=== PATIENT | female | born 1960 | race Caucasian/White ===

== ENCOUNTER 2018-04-15 16:19 | Inpatient (IN) | payer BC ==
[~2018-04-15] VITALS: Ht 177.8 cm; Wt 80.7 kg
--- NOTE | ~2018-04-15 | MORECARE ---
CASE MANAGEMENT DISCHARGE SUMMARY PATIENT: NOHEMY MURPHY UNIT: [id number] ADM DATE: 04/15/18 AGE: 57 : 64 SEX: F ROOM/BED: D.1213 AUTHOR: ANN LEMA PHYSICIAN: REFERRING PHYSICIAN: LIBORIO MARTE MD DATE OF SERVICE: 04/20/18 Discharge Plan Patient Name: NOHEMY MURPHY Facility: [facility]:[place] : 1960 Planned Disposition: Home Anticipated Discharge Date: Discharge Date: Expected LOS: Initial Reviewer: [email or web address] Initial Review Date: 04/20/2018 Generated: 04/20/18 4:45 pm DCPIA - Discharge Planning Initial Assessment Updated by [email or web address]: Britta Rivera on 04/20/18 3:41 pm * Is the patient Alert and Oriented? Yes * How many steps to enter\exit or inside your home? * PCP DR VENEGAS * Pharmacy [facility] Patient Name: NOHEMY MURPHY Page [phone] at 1545 All edits/amendments must be made on the electronic document DICTATION DATE: 04/20/181543 GROCERY MANAGER: TRISH 04/20/181543 RPT#: [id number] DC DATE: STATUS: ADM IN [facility] [address] [place] [address] END OF REPORT
--- NOTE | ~2018-04-15 | CN ---
PATIENT NAME:NOHEMY KNOTT MEDICAL RECORD: [id number] : 64 LOCATION:[facility] D.1213 ADMIT DATE: 04/15/18 ACCOUNT: [id number] CONSULTING PHYSICIAN: INDIRA SAENZ MD REFERRING PHYSICIAN: LIBORIO MARTE MD DATE OF CONSULTATION: 04/16/2018 CONSULT REQUESTING PHYSICIAN: Fallon Xie MD REASON FOR CONSULTATION: Acute exacerbation of COPD, dyspnea. HISTORY OF PRESENT ILLNESS: Ms. Knott is a 57-year-old female who has history of asthma-COPD overlap syndrome. According to the patient, she is sick for the last 2 weeks. According to the patient, 2 weeks ago, she was told that she had walking pneumonia. She was treated with intramuscular steroid injection as well as intramuscular Rocephin injection, but the patient was not getting any better. She was wheezing. She was coughing. The cough was productive with white-yellow color sputum production and that is now improving. She is also having shortness of breath with exertion. Denies any fever and chills. No night sweats. REVIEW OF THE SYSTEMS: As in history of present illness. PAST MEDICAL HISTORY: 1. Asthma. 2. Insomnia. 3. COPD. PAST SURGICAL HISTORY: As in history of present illness. ALLERGY: No known drug allergy. MEDICATIONS: She is on albuterol/ipratropium nebulizer, Singulair 10 mg a day, hydrocodone, Mucinex, and prednisone 5 mg a day. Her other medications are reviewed. PERSONAL AND SOCIAL HISTORY: The patient is an ex-smoker. She is nondrinker. FAMILY HISTORY: Noncontributory. PHYSICAL EXAMINATION: GENERAL: Now, the patient is lying comfortably in bed. She is not in acute distress. VITAL SIGNS: The blood pressure is 122/65, pulse is 104, respiration is 18, temperature is 98.1, and SpO2 is 95% on room air. HEENT: Conjunctivae are pink. Sclerae are not icteric. NECK: Neck is supple. No JVD. CHEST: The chest excursion is minimal on both sides. There is wheeze on forceful expiration. No crackles. HEART: Rhythm regular. Normal sound. No murmur. ABDOMEN: Abdomen is soft. Bowel sounds present. No hepatosplenomegaly. RECTAL: Deferred. EXTREMITIES: No cyanosis. No clubbing. No pedal edema. SKIN: The skin is warm. Normal turgor. CENTRAL NERVOUS SYSTEM: The patient is awake and alert. There is no obvious CONSULT REPORT [id number] NOHEMY KNOTT cranial nerve abnormality. The gait was not tested. LABORATORY DATA AND DIAGNOSTIC DATA: Chest radiograph; there is hyperinflation. No acute infiltrate. CBC; WBC 8.6, hemoglobin 13.7, hematocrit 39.5, and platelet count is 353. Chemistry; sodium 140, potassium 4.1, BUN is 18, and creatinine 0.8. IMPRESSION: 1. Acute exacerbation of COPD. 2. Acute bronchitis. 3. Acute cough. 4. Asthma-COPD overlap syndrome. 5. Dyspnea. 6. Wheezing. 7. Gastroesophageal reflux disease. RECOMMENDATIONS: 1. Continue methylprednisolone IV, Levaquin IV, and albuterol/ipratropium nebulizer every 4 hours. Start Brovana and budesonide nebulizer. Continue Singulair. Start on Mucinex DM two tablets b.i.d. 2. Increase Tessalon Perles 100 mg t.i.d. 3. Repeat the labs and chest radiograph in the morning. Dr. Xie, thank you for involving me in the care of Ms. Knott. TRANSINT:[id number] Voice Confirmation ID: [id number] DOCUMENT ID: [id number] INDIRA SAENZ MD CC: [id number] DICTATION DATE: 04/16/181426 GREEN END WORKER: 04/16/18 [address] [facility] [address] [place] [address]
--- NOTE | ~2018-04-15 | MORECARE ---
CASE MANAGEMENT DISCHARGE SUMMARY PATIENT: NOHEMY MURPHY UNIT: [id number] ADM DATE: 04/15/18 AGE: 57 : 64 SEX: F ROOM/BED: D.1213 AUTHOR: ANN LEMA PHYSICIAN: REFERRING PHYSICIAN: LIBORIO MARTE MD DATE OF SERVICE: 04/20/18 Discharge Plan Patient Name: NOHEMY MURPHY Facility: [facility]:[place] : 1960 Planned Disposition: Home Anticipated Discharge Date: Discharge Date: Expected LOS: Initial Reviewer: [email or web address] Initial Review Date: 04/20/2018 Generated: 04/20/18 5:38 pm Comments DCP- Discharge Planning Updated by [email or web address]: Britta Rivera on 04/20/18 3:[address] Patient Name: NOHEMY MURPHY Admission Status: Urgent Accout number: [id number] Admission Date: 04-15-2018 : 1960 Admission Diagnosis:UNSPECIFIED ASTHMA WITH (ACUTE) EXACERBATION Attending: LIBORIO MARTE Current LOS: 5 Anticipated DC Date: Planned Disposition: Home Primary Insurance: [email or web address] OUT OF STATE Discharge Planning Comments: CM met with patient at bedside after obtaining verbal consent. Patient states she plans on returning home after discharge with her daughter and grandson. Patient states she will have family transport her home via private vehicle. Patient denies any discharge needs at this time. CM will continue to follow and assist as needed for discharge planning / needs. Party Director: Britta Rivera DCPIA - Discharge Planning Initial Assessment Updated by [email or web address]: Britta Rivera on 04/20/18 3:41 pm * Is the patient Alert and Oriented? Yes * How many steps to enter\exit or inside your home? * PCP DR VENEGAS * Pharmacy [facility] Last DP export: 04/20/18 2:45 Patient Name: NOHEMY MURPHY Page [phone] at 6038 All edits/amendments must be made on the electronic document DICTATION DATE: 04/20/188 CLAM SHUCKER: TRISH 04/20/188 RPT#: [id number] DC DATE: STATUS: ADM IN [facility] [address] [place] [address] END OF REPORT
--- NOTE | ~2018-04-15 | MORECARE ---
CASE MANAGEMENT DISCHARGE SUMMARY PATIENT: NOHEMY MURPHY UNIT: [id number] ADM DATE: 04/15/18 AGE: 57 : 64 SEX: F ROOM/BED: D.1213 AUTHOR: ANN LEMA PHYSICIAN: REFERRING PHYSICIAN: LIBORIO MARTE MD DATE OF SERVICE: 04/22/18 Discharge Plan Patient Name: NOHEMY MURPHY Facility: [facility]:[place] : 1960 Planned Disposition: Home Anticipated Discharge Date: Discharge Date: 04/22/2018 Expected LOS: Initial Reviewer: [email or web address] Initial Review Date: 04/20/2018 Generated: 04/22/18 8:06 pm Comments DCP- Discharge Planning Updated by [email or web address]: Britta Rivera on 04/20/18 3:[address] Patient Name: NOHEMY MURPHY Admission Status: Urgent Accout number: [id number] Admission Date: 04-15-2018 : 1960 Admission Diagnosis:UNSPECIFIED ASTHMA WITH (ACUTE) EXACERBATION Attending: LIBORIO MARTE Current LOS: 5 Anticipated DC Date: Planned Disposition: Home Primary Insurance: [employer] OUT OF STATE Discharge Planning Comments: CM met with patient at bedside after obtaining verbal consent. Patient states she plans on returning home after discharge with her daughter and grandson. Patient states she will have family transport her home via private vehicle. Patient denies any discharge needs at this time. CM will continue to follow and assist as needed for discharge planning / needs. Roll On Man: Britta Rivera DCPIA - Discharge Planning Initial Assessment Updated by [email or web address]: Britta Rivera on 04/20/18 3:41 pm * Is the patient Alert and Oriented? Yes * How many steps to enter\exit or inside your home? * PCP DR VENEGAS * Pharmacy [place] Last DP export: 04/20/18 3:38 Patient Name: NOHEMY MURPHY Page [phone] at 1906 All edits/amendments must be made on the electronic document DICTATION DATE: 04/22/181905 MARKETING ASSOCIATE: TRISH 04/22/181905 RPT#: [id number] DC DATE:04/22/18 STATUS: DIS IN [facility] [address] [place] [address] END OF REPORT
[2018-04-15] MEDS ORDERED: SINGULAIR10 MG PO (17:50)
[2018-04-15] MEDS ORDERED: PREDNISONE5 MG PO (17:50)
[2018-04-15] MEDS ORDERED: MUCINEX600 MG PO (17:50)
[2018-04-15] MEDS ORDERED: SINGULAIR10 MG (17:55)
[2018-04-15] MEDS ORDERED: ALBUTEROL SULF8.5 GM INH (17:57)
[2018-04-15 18:33] VITALS: BP 122/83; BMI 25.8
[2018-04-15 18:52] LABS: BASOPHILS 0.9 % (0-2); EOSINOPHILS 4.7 % (0-7); HEMATOCRIT 39.5 % (36.0-48.0); HEMOGLOBIN 13.7 g/dL (12-16); IMMATURE GRANULOCYTES 0.1 % (0-5); LYMPHOCYTES 32.3 % (15-50); MCH 35.9 pg (26.0-34.0); MCHC 34.7 g/dL (31.0-37.0); MCV 103.4 fL (80.0-100.0); MEAN PLATELET VOLUME 9.8 fL (7.4-10.4); PLATELET COUNT 353 10x3/uL (130-400); RBC 3.82 10x6/uL (4.00-5.40); RDW 12.3 % (11.5-14.5); WBC 8.6 10x3/uL (4.8-10.8)
[2018-04-15 18:58] LABS: ALBUMIN 3.7 g/dL (3.4-5.0); ALKALINE PHOSPHATASE 121 U/L (46-116); ALT (SGPT) 37 U/L (10-68); BILIRUBIN - TOTAL 0.53 mg/dL (0.2-1.3); CALC OSMOLALITY 280 mosm/kg (275-300); CALCIUM 8.6 mg/dL (8.5-10.1); CARBON DIOXIDE 26.7 mmol/L (21.0-32.0); CHLORIDE - SERUM 105 mmol/L (98-107); CREATININE - SERUM 0.8 mg/dL (0.6-1.3); GLUCOSE 102 mg/dL (74-106); POTASSIUM - SERUM 4.1 mmol/L (3.5-5.1); PROTEIN - SERUM 6.8 g/dL (6.4-8.2); SODIUM 140 mmol/L (136-145); UREA NITROGEN 18 mg/dL (7-18); eGFR NON AFRICAN AMERICAN 79 mL/min (90-120)
[2018-04-15 20:00] VITALS: BP 128/73
[2018-04-16] VITALS (7 sets, daily range): BP systolic 96–140; BP diastolic 54–91
[2018-04-17 04:00] VITALS: BP 167/95
[2018-04-17 06:23] LABS: HEMATOCRIT 40.1 % (36.0-48.0); HEMOGLOBIN 13.9 g/dL (12-16); MCH 36.1 pg (26.0-34.0); MCHC 34.7 g/dL (31.0-37.0); MCV 104.2 fL (80.0-100.0); MEAN PLATELET VOLUME 10.2 fL (7.4-10.4); PLATELET COUNT 388 10x3/uL (130-400); RBC 3.85 10x6/uL (4.00-5.40); RDW 12.4 % (11.5-14.5)
[2018-04-17 06:29] LABS: CARBON DIOXIDE 22.9 mmol/L (21.0-32.0); CHLORIDE - SERUM 107 mmol/L (98-107); CREATININE - SERUM 0.8 mg/dL (0.6-1.3); POTASSIUM - SERUM 3.8 mmol/L (3.5-5.1); SODIUM 142 mmol/L (136-145); eGFR NON AFRICAN AMERICAN 79 mL/min (90-120)
[2018-04-17 06:30] LABS: CALC OSMOLALITY 285 mosm/kg (275-300); GLUCOSE 153 mg/dL (74-106); UREA NITROGEN 12 mg/dL (7-18)
[2018-04-17 07:49] LABS: LYMPHOCYTES 9 % (15-50); MONOCYTES 5 % (2-11); NEUTROPHILS 85 % (40-80)
[2018-04-17 07:50] LABS: ANISOCYTOSIS OCC; HYPOCHROMASIA OCC; PLATELET ESTIMATE NORMAL
[2018-04-17 08:09] VITALS: BP 97/56
[2018-04-17 15:03] VITALS: BP 118/68
[2018-04-17 17:00] VITALS: BP 122/78
[2018-04-17 19:25] VITALS: BP 150/77
[2018-04-18 00:32] VITALS: BP 123/61
[2018-04-18 04:45] VITALS: BP 109/60
[2018-04-18 06:02] LABS: BASOPHILS 0 % (0-2); EOSINOPHILS 0 % (0-7); HEMATOCRIT 38.3 % (36.0-48.0); HEMOGLOBIN 13.2 g/dL (12-16); IMMATURE GRANULOCYTES 0.4 % (0-5); LYMPHOCYTES 11.5 % (15-50); MCH 35.7 pg (26.0-34.0); MCHC 34.5 g/dL (31.0-37.0); MCV 103.5 fL (80.0-100.0); MEAN PLATELET VOLUME 9.7 fL (7.4-10.4); NEUTROPHILS 80.1 % (40-80); PLATELET COUNT 311 10x3/uL (130-400); RDW 12.7 % (11.5-14.5); WBC 15.8 10x3/uL (4.8-10.8)
[2018-04-18 06:39] LABS: CALC OSMOLALITY 286 mosm/kg (275-300); CALCIUM 8.7 mg/dL (8.5-10.1); CARBON DIOXIDE 24.1 mmol/L (21.0-32.0); CHLORIDE - SERUM 108 mmol/L (98-107); CREATININE - SERUM 0.7 mg/dL (0.6-1.3); GLUCOSE 108 mg/dL (74-106); POTASSIUM - SERUM 3.9 mmol/L (3.5-5.1); SODIUM 143 mmol/L (136-145); UREA NITROGEN 14 mg/dL (7-18); eGFR NON AFRICAN AMERICAN > 90 mL/min (90-120)
[2018-04-18 07:23] VITALS: BP 114/58
[2018-04-18 11:02] VITALS: BP 105/56
[2018-04-18 19:05] VITALS: BP 121/64
[2018-04-18 22:59] VITALS: BP 125/88
[2018-04-19 02:59] VITALS: BP 115/65
[2018-04-19 05:53] LABS: BASOPHILS 0 % (0-2); EOSINOPHILS 0 % (0-7); HEMATOCRIT 39.4 % (36.0-48.0); HEMOGLOBIN 13.4 g/dL (12-16); IMMATURE GRANULOCYTES 0.3 % (0-5); LYMPHOCYTES 7.1 % (15-50); MCH 35.6 pg (26.0-34.0); MCV 104.8 fL (80.0-100.0); MEAN PLATELET VOLUME 10.2 fL (7.4-10.4); MONOCYTES 5.6 % (2-11); PLATELET COUNT 343 10x3/uL (130-400); RBC 3.76 10x6/uL (4.00-5.40); RDW 12.7 % (11.5-14.5)
[2018-04-19 06:03] LABS: CALC OSMOLALITY 286 mosm/kg (275-300); CALCIUM 9.1 mg/dL (8.5-10.1); CHLORIDE - SERUM 106 mmol/L (98-107); CREATININE - SERUM 0.7 mg/dL (0.6-1.3); GLUCOSE 130 mg/dL (74-106); SODIUM 143 mmol/L (136-145); UREA NITROGEN 13 mg/dL (7-18); eGFR NON AFRICAN AMERICAN > 90 mL/min (90-120)
[2018-04-19 06:11] LABS: POTASSIUM - SERUM 4.7 mmol/L (3.5-5.1)
[2018-04-19 06:45] VITALS: BP 138/89
[2018-04-19 11:10] VITALS: BP 136/79
[2018-04-19 14:59] VITALS: BP 126/76
[2018-04-19 19:56] VITALS: BP 118/73
[2018-04-19 23:34] VITALS: BP 125/72
[2018-04-20 03:57] VITALS: BP 107/61
[2018-04-20 06:18] LABS: BASOPHILS 0 % (0-2); EOSINOPHILS 0.1 % (0-7); HEMATOCRIT 39.6 % (36.0-48.0); HEMOGLOBIN 13.4 g/dL (12-16); IMMATURE GRANULOCYTES 0.3 % (0-5); LYMPHOCYTES 11.4 % (15-50); MCH 35.4 pg (26.0-34.0); MCHC 33.8 g/dL (31.0-37.0); MCV 104.5 fL (80.0-100.0); MEAN PLATELET VOLUME 10.4 fL (7.4-10.4); MONOCYTES 6.2 % (2-11); PLATELET COUNT 342 10x3/uL (130-400); RBC 3.79 10x6/uL (4.00-5.40); RDW 12.6 % (11.5-14.5); WBC 11.6 10x3/uL (4.8-10.8)
[2018-04-20 06:32] LABS: CALC OSMOLALITY 283 mosm/kg (275-300); CALCIUM 8.9 mg/dL (8.5-10.1); CARBON DIOXIDE 28.2 mmol/L (21.0-32.0); CHLORIDE - SERUM 106 mmol/L (98-107); CREATININE - SERUM 0.7 mg/dL (0.6-1.3); GLUCOSE 124 mg/dL (74-106); POTASSIUM - SERUM 4.3 mmol/L (3.5-5.1); SODIUM 141 mmol/L (136-145); eGFR NON AFRICAN AMERICAN > 90 mL/min (90-120)
[2018-04-20 06:33] LABS: UREA NITROGEN 17 mg/dL (7-18)
[2018-04-20 07:32] VITALS: BP 116/54
[2018-04-20 11:18] VITALS: BP 107/59
[2018-04-20 15:27] VITALS: BP 128/79
[2018-04-21 00:28] VITALS: BP 98/59
[2018-04-21 04:18] VITALS: BP 102/64
[2018-04-21 05:01] LABS: BASOPHILS 0.1 % (0-2); EOSINOPHILS 2.6 % (0-7); HEMOGLOBIN 12.7 g/dL (12-16); IMMATURE GRANULOCYTES 0.4 % (0-5); LYMPHOCYTES 34.7 % (15-50); MCH 35.9 pg (26.0-34.0); MCHC 34.3 g/dL (31.0-37.0); MCV 104.5 fL (80.0-100.0); MEAN PLATELET VOLUME 9.9 fL (7.4-10.4); MONOCYTES 10.6 % (2-11); NEUTROPHILS 51.6 % (40-80); PLATELET COUNT 324 10x3/uL (130-400); RBC 3.54 10x6/uL (4.00-5.40); RDW 12.7 % (11.5-14.5); WBC 10.9 10x3/uL (4.8-10.8)
[2018-04-21 05:19] LABS: ANION GAP 11.6 mmol/L (8-16); CALCIUM 8.7 mg/dL (8.5-10.1); CARBON DIOXIDE 29.9 mmol/L (21.0-32.0); CREATININE - SERUM 0.9 mg/dL (0.6-1.3); POTASSIUM - SERUM 3.5 mmol/L (3.5-5.1)
[2018-04-21 07:32] VITALS: BP 118/71
[2018-04-21 09:30] VITALS: Ht 177.8 cm; Wt 80.7 kg
[2018-04-21 12:58] VITALS: BP 119/80
[2018-04-21 16:47] VITALS: BP 104/72
[2018-04-21 19:38] VITALS: BP 120/69
[2018-04-22 04:58] VITALS: BP 124/64
[2018-04-22 07:36] VITALS: BP 94/59
[2018-04-22 11:52] VITALS: BP 108/53
[2018-04-22 15:53] VITALS: BP 115/78
[2018-04-22] MEDS ORDERED: LEVAQUIN750 MG PO (16:39)
[2018-04-22] MEDS ORDERED: MUCINEX DM ER1 EAC1 PO (16:39)
[2018-04-22] MEDS ORDERED: BENZONATATE200 MG PO (16:40)
[2018-04-22] MEDS ORDERED: IPRAT-ALBUT 0.5-3 ML UPD (16:41)
[2018-04-22] MEDS ORDERED: ALBUTEROL SULF8.5 GM INH (16:42)
[2018-04-22] MEDS ORDERED: PREDNISONE10 MG PO (16:44)
== END 2018-04-22 17:49 | disposition home or self-care (01) | DRG 190 ==
LOC: D.SDCHOLD 16:19 → D.M3 16:19
PROVIDERS: Emergency Medicine; Family Medicine
DX: J44.1 Chronic obstructive pulmonary disease with (acute) exacerbation (principal); J18.9 Pneumonia, unspecified organism; J45.901 Unspecified asthma with (acute) exacerbation; J98.11 Atelectasis; J44.0 Chronic obstructive pulmonary disease with (acute) lower respiratory infection; J20.9 Acute bronchitis, unspecified; G47.00 Insomnia, unspecified; K21.9 Gastro-esophageal reflux disease without esophagitis; Z87.891 Personal history of nicotine dependence

== ENCOUNTER 2019-06-24 08:05 | Inpatient (IN) | payer BC ==
[~2019-06-24] VITALS: Ht 177.8 cm; Wt 72.6 kg
[~2019-06-24 08:05] MED LIST: ALBUTEROL SULF8.5 GM INH; BENZONATATE200 MG PO; IPRAT-ALBUT 0.5-3 ML UPD; LEVAQUIN750 MG PO; MUCINEX DM ER1 EAC1 PO; MUCINEX600 MG PO; OMNICEF300 MG PO; PREDNISONE10 MG PO; PREDNISONE5 MG PO; PROTONIX40 MG PO; RESTORIL15 MG PO; SINGULAIR10 MG; SINGULAIR10 MG PO; SYMBICORT 16010.2 GM INH; ZITHROMAX500 MG PO
[2019-06-24 08:41] LABS: BASOPHILS 0.6 % (0-2); EOSINOPHILS 1.7 % (0-7); IMMATURE GRANULOCYTES 0.2 % (0-5); LYMPHOCYTES 14.6 % (15-50); MCH 36.5 pg (26.0-34.0); MCHC 34.9 g/dL (31.0-37.0); MCV 104.6 fL (80.0-100.0); MEAN PLATELET VOLUME 9.4 fL (7.4-10.4); MONOCYTES 7.4 % (2-11); NEUTROPHILS 75.5 % (40-80); PLATELET COUNT 375 10x3/uL (130-400); RBC 4.11 10x6/uL (4.00-5.40); WBC 6.6 10x3/uL (4.8-10.8)
[2019-06-24 08:52] LABS: CALC OSMOLALITY 282 mosm/kg (275-300); CALCIUM 9.3 mg/dL (8.5-10.1); CARBON DIOXIDE 28.1 mmol/L (21.0-32.0); CHLORIDE - SERUM 104 mmol/L (98-107); CREATININE - SERUM 0.8 mg/dL (0.6-1.3); GLUCOSE 100 mg/dL (74-106); POTASSIUM - SERUM 3.9 mmol/L (3.5-5.1); SODIUM 141 mmol/L (136-145); UREA NITROGEN 17 mg/dL (7-18); eGFR NON AFRICAN AMERICAN 78 mL/min (90-120)
[2019-06-24 08:54] LABS: APTT 26.7 SECONDS (22.8-39.4); INR 0.91 (0.85-1.17); PROTIME 11.8 SECONDS (11.6-15.0)
[2019-06-24 08:56] LABS: ALBUMIN 4.1 g/dL (3.4-5.0)
[2019-06-24 09:20] LABS: ALKALINE PHOSPHATASE 141 U/L (46-116); ALT (SGPT) 76 U/L (10-68); BILIRUBIN - TOTAL 0.51 mg/dL (0.2-1.3); CKMB 1.3 U/L (0.0-3.6); CREATINE KINASE 166 UL (21-215); PRO BNP 157 pg/mL (0-125); PROTEIN - SERUM 8.1 g/dL (6.4-8.2); TROPONIN-I < 0.017 ng/mL (0.000-0.060)
[2019-06-24 09:42] VITALS: BP 136/74
[2019-06-24 11:56] VITALS: BP 146/71
--- NOTE | 2019-06-24 13:02 | MORECARE ---
CASE MANAGEMENT DISCHARGE SUMMARY PATIENT: NOHEMY MURPHY UNIT: [id number] ADM DATE: 06/24/19 AGE: 59 : 64 SEX: F ROOM/BED: D.2206 AUTHOR: PITA,DOC PHYSICIAN: REFERRING PHYSICIAN: SAUL GIBSON MD DATE OF SERVICE: 06/24/19 Discharge Plan Patient Name: NOHEMY MURPHY Facility: [facility]:[place] : 1960 Planned Disposition: Home Anticipated Discharge Date: 06/26/19 Discharge Date: Expected LOS: 2 Initial Reviewer: [email or web address] Initial Review Date: 06/24/2019 Generated: 06/24/19 2:01 pm DCP- Discharge Planning Updated by [email or web address]: Leena Landers on 06/24/19 11:[address] DC PLAN: Return home independently. ANTICIPATED DC NEEDS: Denied known dc needs. CM met with patient to complete initial dc planning assessment. CM educated patient on the CM role and verbal consent given by patient to complete assessment. CM verified patient's address, phone number, and emergency contact phone numbers. Patient lives at home and her 14 year old grandson lives with her. At discharge patient plans to return home and feels this is a safe discharge. CM discussed availability of home health, rehab services, and medical equipment. Patient denied known discharge needs at this time. Transportation provider at discharge will be her sister. CM will continue to follow and will assist as needed with dc plans/needs. Leena Landers RN, [facility] DCPIA - Discharge Planning Initial Assessment Updated by [email or web address]: Leena Landers on 06/24/19 12:59 pm * Is the patient Alert and Oriented? Yes * How many steps to enter\exit or inside your home? None * PCP Dr. Chavez * Pharmacy [facility] * Preadmission Environment Home with Family * ADLs Independent * Equipment Nebulizer * List name and contact numbers for known caregivers / representatives who currently or will assist patient after discharge: Jolie key - [phone] * Verbal permission to speak to the caregivers and representatives has been obtained from the patient. Yes * Community resources currently utilized None * Additional services required to return to the preadmission environment? No * Can the patient safely return to the preadmission environment? Yes * Has this patient been hospitalized within the prior 30 days at any hospital? Yes Patient Name: NOHEMY MURPHY Page [phone] at 1302 All edits/amendments must be made on the electronic document DICTATION DATE: 06/24/19 1301 SPRAY GUN OPERATOR: TRISH 06/24/19 1301 RPT#: [id number] DC DATE: STATUS: ADM IN [facility] [address] [place] [address] END OF REPORT
[2019-06-24 15:33] VITALS: BP 126/72; BMI 23.0
[2019-06-24 16:40] VITALS: BP 134/83
--- NOTE | 2019-06-24 19:40 | NUR ---
PT SITTING UP IN BED, AOX4. SOB AT REST. O2 2L/NC. IV RIGHT FA INFUSING NS @ 100. DENIES NEEDS. CL IN REACH, WILL CTM
[2019-06-24 20:00] VITALS: BP 129/75
[2019-06-25] VITALS: BP 110/54
[2019-06-25 04:00] VITALS: BP 115/58
[2019-06-25 06:30] LABS: BASOPHILS 0 % (0-2); EOSINOPHILS 0 % (0-7); HEMATOCRIT 38.9 % (36.0-48.0); HEMOGLOBIN 13.3 g/dL (12-16); IMMATURE GRANULOCYTES 0.1 % (0-5); LYMPHOCYTES 6.8 % (15-50); MCH 35.5 pg (26.0-34.0); MCHC 34.2 g/dL (31.0-37.0); MCV 103.7 fL (80.0-100.0); MEAN PLATELET VOLUME 11.2 fL (7.4-10.4); MONOCYTES 3.7 % (2-11); NEUTROPHILS 89.4 % (40-80); PLATELET COUNT 394 10x3/uL (130-400); RBC 3.75 10x6/uL (4.00-5.40); RDW 11.9 % (11.5-14.5)
[2019-06-25 06:50] LABS: ALBUMIN 3.2 g/dL (3.4-5.0); ALKALINE PHOSPHATASE 106 U/L (46-116); ALT (SGPT) 60 U/L (10-68); BILIRUBIN - TOTAL 0.26 mg/dL (0.2-1.3); CALCIUM 8.7 mg/dL (8.5-10.1); CARBON DIOXIDE 23.7 mmol/L (21.0-32.0); CHLORIDE - SERUM 107 mmol/L (98-107); CREATININE - SERUM 0.6 mg/dL (0.6-1.3); GLUCOSE 135 mg/dL (74-106); MAGNESIUM - SERUM 1.9 mg/dL (1.8-2.4); PHOSPHOROUS 2.9 mg/dL (2.5-4.9); POTASSIUM - SERUM 3.7 mmol/L (3.5-5.1); PROTEIN - SERUM 6.9 g/dL (6.4-8.2); SODIUM 141 mmol/L (136-145); eGFR NON AFRICAN AMERICAN > 90 mL/min (90-120)
[2019-06-25 06:51] LABS: CALC OSMOLALITY 281 mosm/kg (275-300); UREA NITROGEN 10 mg/dL (7-18)
[2019-06-25 09:03] VITALS: BP 111/55
--- NOTE | 2019-06-25 09:44 | NUR ---
PT ALERT X 4. INSPIRATORY AND EXPIRATORY WHEEZES TO ALL SABA, 2L O2 PER NC. TELEMETRY IN PLACE. IV TO RIGHT FOREARM, PATENT, DRESSING CDI. PT REPORTING NO PAIN AT THIS TIME. BED LOW, CALL LIGHT IN REACH. NO OTHER NEEDS AT THIS TIME.
[2019-06-25 12:10] VITALS: BP 103/63
[2019-06-25 16:15] VITALS: BP 127/67
--- NOTE | 2019-06-25 19:45 | NUR ---
SITTING UP IN BED RECEIVING UD AT THIS TIME. ALERT AND ORIENTED X4. RESP IRREG, LABORED. NONPROD COUGH NOTED. O2 @ 2L/NC. BBS EXP WHEEZES. DENIES PAIN. TELEMETRY SHOWS SR WITH RATE OF 86. NS @ 100 MLHR INFUSING IN RT FOREARM. AMBULATORY. GEN WEAKNESS. SR ELEVATED X2. CL IN REACH.
[2019-06-25 20:00] VITALS: BP 131/68
[2019-06-26] VITALS: BP 93/49
--- NOTE | 2019-06-26 01:47 | NUR ---
HAS RESTED WELL TONIGHT. LYING ON RT SIDE IN BED WITH EYES CLOSED. RESP NONLABORED. CL IN REACH.
[2019-06-26 04:00] VITALS: BP 120/61
--- NOTE | 2019-06-26 06:00 | NUR ---
RESTED WELL THIS SHIFT. NO DISTRESS. O2 IN USE. RESP EVEN AND NONLABORED. CL IN REACH.
[2019-06-26 06:33] LABS: BASOPHILS 0 % (0-2); EOSINOPHILS 0 % (0-7); HEMATOCRIT 35.8 % (36.0-48.0); HEMOGLOBIN 12.2 g/dL (12-16); IMMATURE GRANULOCYTES 0.1 % (0-5); LYMPHOCYTES 8.2 % (15-50); MCH 35.4 pg (26.0-34.0); MCHC 34.1 g/dL (31.0-37.0); MCV 103.8 fL (80.0-100.0); MONOCYTES 5.2 % (2-11); NEUTROPHILS 86.5 % (40-80); PLATELET COUNT 334 10x3/uL (130-400); RBC 3.45 10x6/uL (4.00-5.40); RDW 12.4 % (11.5-14.5)
[2019-06-26 06:48] LABS: WBC 9.2 10x3/uL (4.8-10.8)
[2019-06-26 07:35] LABS: ALBUMIN 2.8 g/dL (3.4-5.0); ALT (SGPT) 45 U/L (10-68); CALC OSMOLALITY 285 mosm/kg (275-300); CARBON DIOXIDE 25.4 mmol/L (21.0-32.0); CHLORIDE - SERUM 109 mmol/L (98-107); CREATININE - SERUM 0.7 mg/dL (0.6-1.3); GLUCOSE 151 mg/dL (74-106); SODIUM 143 mmol/L (136-145); eGFR NON AFRICAN AMERICAN > 90 mL/min (90-120)
[2019-06-26 07:36] LABS: UREA NITROGEN 7 mg/dL (7-18)
[2019-06-26 07:49] LABS: ALKALINE PHOSPHATASE 81 U/L (46-116); BILIRUBIN - TOTAL 0.18 mg/dL (0.2-1.3)
[2019-06-26 09:01] VITALS: BP 113/64
--- NOTE | 2019-06-26 09:50 | NUR ---
PT ALERT X 4. EXPIRATORY WHEEZES TO ALL SABA, 2L O2 PER NC. IV TO RIGHT FOREARM, PATENT, DRESSING CDI. PT REPORTING NO PAIN AT THIS TIME. PT COUGHING CONSTANTLY, NON-PRODUCTIVE. BED LOW, CALL LIGHT IN REACH. NO OTHER NEEDS AT THIS TIME.
[2019-06-26 13:02] VITALS: BP 92/72
[2019-06-26 16:49] VITALS: BP 118/56
[2019-06-26 20:00] VITALS: BP 128/71
[2019-06-27] VITALS: BP 107/66
--- NOTE | 2019-06-27 00:35 | NUR ---
LYING QUEITLY WITH NO DISTRESS NOTED. RESP EVEN AND UNALBORED. NO DISTRESS NOTED. IV INFUSING TO LFA WITHOUT REDNESS OR EDEMA NOTED. O2 @ 2L PER NC ON. NO COMPLAINTS VOICED.CL IN REACH
--- NOTE | 2019-06-27 03:42 | NUR ---
I have reviewed this patient and I concur with the Shift Assessment completed by the Licensed Practical Nurse today this shift.
[2019-06-27 04:00] VITALS: BP 130/65
[2019-06-27 06:13] LABS: ALBUMIN 2.6 g/dL (3.4-5.0); ALKALINE PHOSPHATASE 80 U/L (46-116); ALT (SGPT) 35 U/L (10-68); BILIRUBIN - TOTAL 0.22 mg/dL (0.2-1.3); CALC OSMOLALITY 286 mosm/kg (275-300); CALCIUM 8.2 mg/dL (8.5-10.1); CARBON DIOXIDE 23.6 mmol/L (21.0-32.0); CHLORIDE - SERUM 111 mmol/L (98-107); CREATININE - SERUM 0.6 mg/dL (0.6-1.3); GLUCOSE 127 mg/dL (74-106); POTASSIUM - SERUM 3.7 mmol/L (3.5-5.1); PROTEIN - SERUM 5.9 g/dL (6.4-8.2); SODIUM 144 mmol/L (136-145); UREA NITROGEN 7 mg/dL (7-18); eGFR NON AFRICAN AMERICAN > 90 mL/min (90-120)
[2019-06-27 06:21] LABS: BASOPHILS 0 % (0-2); EOSINOPHILS 0 % (0-7); HEMATOCRIT 36.5 % (36.0-48.0); HEMOGLOBIN 12.5 g/dL (12-16); IMMATURE GRANULOCYTES 0.1 % (0-5); LYMPHOCYTES 11.2 % (15-50); MCH 35.8 pg (26.0-34.0); MCHC 34.2 g/dL (31.0-37.0); MCV 104.6 fL (80.0-100.0); MEAN PLATELET VOLUME 10.6 fL (7.4-10.4); MONOCYTES 8.2 % (2-11); NEUTROPHILS 80.5 % (40-80); PLATELET COUNT 343 10x3/uL (130-400); RBC 3.49 10x6/uL (4.00-5.40); RDW 12.4 % (11.5-14.5); WBC 8.9 10x3/uL (4.8-10.8)
--- NOTE | 2019-06-27 08:19 | NUR ---
RESTING IN BED, NO DISTRESS NOTED, O2 PER NC, IV INFUSING PER LFA, TELE IN PLACE, CONT TO MONITOR
[2019-06-27 08:42] VITALS: BP 110/71
[2019-06-27 13:44] VITALS: BP 110/64
--- NOTE | 2019-06-27 15:05 | NUR ---
voiding frequently, urine light yellow in color, 200cc usual amt
[2019-06-27 17:48] VITALS: BP 145/76
[2019-06-27 19:30] VITALS: BP 122/60
[2019-06-28 00:30] VITALS: BP 142/79
--- NOTE | 2019-06-28 02:39 | NUR ---
I have reviewed this patient and I concur with the Shift Assessment completed by the Licensed Practical Nurse today this shift.
[2019-06-28 05:01] VITALS: BP 118/68
[2019-06-28 05:25] LABS: BASOPHILS 0.1 % (0-2); EOSINOPHILS 0.2 % (0-7); HEMATOCRIT 35.9 % (36.0-48.0); HEMOGLOBIN 12.2 g/dL (12-16); IMMATURE GRANULOCYTES 0.2 % (0-5); LYMPHOCYTES 24.7 % (15-50); MCH 35.7 pg (26.0-34.0); MEAN PLATELET VOLUME 9.7 fL (7.4-10.4); MONOCYTES 12.9 % (2-11); NEUTROPHILS 61.9 % (40-80); PLATELET COUNT 391 10x3/uL (130-400); RBC 3.42 10x6/uL (4.00-5.40); RDW 12.4 % (11.5-14.5); WBC 9.5 10x3/uL (4.8-10.8)
[2019-06-28 06:14] LABS: ALBUMIN 2.4 g/dL (3.4-5.0); ALKALINE PHOSPHATASE 76 U/L (46-116); ALT (SGPT) 36 U/L (10-68); BILIRUBIN - TOTAL 0.25 mg/dL (0.2-1.3); CALC OSMOLALITY 287 mosm/kg (275-300); CALCIUM 7.9 mg/dL (8.5-10.1); CARBON DIOXIDE 26.4 mmol/L (21.0-32.0); CHLORIDE - SERUM 111 mmol/L (98-107); CREATININE - SERUM 0.7 mg/dL (0.6-1.3); GLUCOSE 95 mg/dL (74-106); POTASSIUM - SERUM 3.3 mmol/L (3.5-5.1); PROTEIN - SERUM 5.5 g/dL (6.4-8.2); SODIUM 145 mmol/L (136-145); UREA NITROGEN 10 mg/dL (7-18); eGFR NON AFRICAN AMERICAN > 90 mL/min (90-120)
[2019-06-28 08:05] VITALS: BP 133/72
--- NOTE | 2019-06-28 08:35 | NUR ---
PATIENT AWAKE WATCHING TV. CL IN REACH. NO NEEDS AT THIS TIME. WCTM
[2019-06-28 12:45] VITALS: BP 139/85
--- NOTE | 2019-06-28 13:38 | NUR ---
PATIENT UP MOVING AROUND IN ROOM. NO NEEDS AT THIS TIME. CL IN REACH. WCTM
[2019-06-28 15:16] VITALS: Ht 177.8 cm; Wt 72.6 kg
[2019-06-28 16:17] VITALS: BP 147/93; BP 159/108
[2019-06-28 19:30] VITALS: BP 127/65
[2019-06-29 00:30] VITALS: BP 131/72
[2019-06-29 04:50] VITALS: BP 123/74
[2019-06-29 07:03] LABS: BASOPHILS 0 % (0-2); EOSINOPHILS 0 % (0-7); HEMATOCRIT 36.9 % (36.0-48.0); HEMOGLOBIN 12.6 g/dL (12-16); IMMATURE GRANULOCYTES 0.3 % (0-5); LYMPHOCYTES 11.8 % (15-50); MCH 35.4 pg (26.0-34.0); MCHC 34.1 g/dL (31.0-37.0); MCV 103.7 fL (80.0-100.0); MEAN PLATELET VOLUME 10.2 fL (7.4-10.4); MONOCYTES 7.5 % (2-11); NEUTROPHILS 80.4 % (40-80); PLATELET COUNT 445 10x3/uL (130-400); RBC 3.56 10x6/uL (4.00-5.40); RDW 12.2 % (11.5-14.5); WBC 10.1 10x3/uL (4.8-10.8)
[2019-06-29 07:08] LABS: ALBUMIN 2.7 g/dL (3.4-5.0); ALKALINE PHOSPHATASE 100 U/L (46-116); BILIRUBIN - TOTAL 0.22 mg/dL (0.2-1.3); CALCIUM 8.7 mg/dL (8.5-10.1); CARBON DIOXIDE 25.6 mmol/L (21.0-32.0); CHLORIDE - SERUM 108 mmol/L (98-107); CREATININE - SERUM 0.6 mg/dL (0.6-1.3); PROTEIN - SERUM 5.8 g/dL (6.4-8.2); SODIUM 144 mmol/L (136-145); UREA NITROGEN 8 mg/dL (7-18); eGFR NON AFRICAN AMERICAN > 90 mL/min (90-120)
[2019-06-29 07:10] LABS: ALT (SGPT) 68 U/L (10-68); CALC OSMOLALITY 287 mosm/kg (275-300); GLUCOSE 155 mg/dL (74-106); POTASSIUM - SERUM 4.3 mmol/L (3.5-5.1)
--- NOTE | 2019-06-29 08:00 | NUR ---
IV THERAPY RESTARTED IN RIGHT FOREARM WITH 22 G ONE ATTEMPT. CL IN REACH. NO FURTHER NEEDS AT THIS TIME. WCTM
[2019-06-29 09:19] VITALS: BP 120/76
[2019-06-29 13:53] VITALS: BP 133/75
[2019-06-29 18:05] VITALS: BP 122/80
--- NOTE | 2019-06-29 19:30 | NUR ---
PATIENT LYING IN BED WITH SIGNIFICANT OTHER. PATIENT HAS R FA IV WITH NS @100, NO REDNESS, OR SWELLING. PATIENT DENIES ANY NEEDS AT THIS TIME. BED RAILS X2. CALL LIGHT AND BEDSIDE TABLE WITHIN REACH.
[2019-06-29 20:52] VITALS: BP 152/83
[2019-06-30] VITALS (7 sets, daily range): BP systolic 108–151; BP diastolic 73–94
[2019-06-30 05:03] LABS: BASOPHILS 0 % (0-2); EOSINOPHILS 0 % (0-7); HEMATOCRIT 36.7 % (36.0-48.0); HEMOGLOBIN 12.4 g/dL (12-16); IMMATURE GRANULOCYTES 0.5 % (0-5); LYMPHOCYTES 7.4 % (15-50); MCH 35.1 pg (26.0-34.0); MCHC 33.8 g/dL (31.0-37.0); MEAN PLATELET VOLUME 10.6 fL (7.4-10.4); MONOCYTES 7.3 % (2-11); NEUTROPHILS 84.8 % (40-80); PLATELET COUNT 445 10x3/uL (130-400); RBC 3.53 10x6/uL (4.00-5.40); RDW 12.3 % (11.5-14.5)
[2019-06-30 05:10] LABS: WBC 12.9 10x3/uL (4.8-10.8)
[2019-06-30 05:20] LABS: ALBUMIN 2.6 g/dL (3.4-5.0); ALKALINE PHOSPHATASE 103 U/L (46-116); BILIRUBIN - TOTAL 0.26 mg/dL (0.2-1.3); CALCIUM 8.7 mg/dL (8.5-10.1); CARBON DIOXIDE 26.6 mmol/L (21.0-32.0); CHLORIDE - SERUM 108 mmol/L (98-107); CREATININE - SERUM 0.7 mg/dL (0.6-1.3); GLUCOSE 173 mg/dL (74-106); PROTEIN - SERUM 6.1 g/dL (6.4-8.2); SODIUM 145 mmol/L (136-145); eGFR NON AFRICAN AMERICAN > 90 mL/min (90-120)
[2019-06-30 05:36] LABS: ALT (SGPT) 98 U/L (10-68); CALC OSMOLALITY 292 mosm/kg (275-300); POTASSIUM - SERUM 3.6 mmol/L (3.5-5.1); UREA NITROGEN 12 mg/dL (7-18)
--- NOTE | 2019-06-30 07:40 | NUR ---
AWAKE AND ALERT. ORIENTED X3. NO C/O AT THIS TIME. LUNGS HAVE CRACKLES AND WHEEZES THROUGOUT LUNG SABA. OCCASSIONALLY PRODUCTIVE COUGH NOTED. SKIN IS INTACT WITHOUT REDNESS. IV TO RIGHT FOREARM IS PATENT WITHOUT REDNESS AT INSERTION SITE. DENIES NEEDS.
--- NOTE | 2019-06-30 09:40 | NUR ---
ATE MOST OF BREAKFAST. TOOK AM MEDS WITHOUT DIFFICUTLY. UP TO BR PER SELF. DENIES NEEDS.
--- NOTE | 2019-06-30 12:30 | NUR ---
ATE ALL OF LUNCH. DENIES NEEDS.
--- NOTE | 2019-06-30 13:10 | NUR ---
REQUESTED AND GIVEN 0.5MG CLONIPIN PO FOR ANXIETY. NO CHANGES NOTED.
--- NOTE | 2019-06-30 14:00 | NUR ---
UP TO SHOWER WITH SET UP ASSISTANCE. DID WELL. NO SOB NOTED WITH EXERTION.
[2019-06-30 15:14] LABS: APPEARANCE CLEAR (CLEAR); BILIRUBIN NEGATIVE (NEGATIVE); COLOR STRAW (YELLOW); GLUCOSE NEGATIVE (NEGATIVE); KETONE NEGATIVE (NEGATIVE); NITRITE NEGATIVE (NEGATIVE); PROTEIN NEGATIVE (NEGATIVE); SPECIFIC GRAVITY 1.005 (1.005-1.020); UROBILINOGEN NORMAL (NORMAL)
--- NOTE | 2019-06-30 17:45 | NUR ---
ATE ALL OF SUPPER. DENIES NEEDS. NO CHANGES NOTED.
[2019-07-01] VITALS: BP 124/68
--- NOTE | 2019-07-01 03:14 | NUR ---
ALERT AND ORENTED X4 ABLE TO VOICE NEEDS AND WANTS TO STAFF. REMAINS ON ROOM AIR. IV TO RIGHT FA WITH NS AT 100ML/HR WITH NO S/S OF INFECTION NOTED AT THIS TIME. TELEMERTY IN PLACE 93 SR. NO NEEDS AT THIS TIME.
[2019-07-01 04:00] VITALS: BP 123/75
[2019-07-01 06:05] LABS: BASOPHILS 0 % (0-2); EOSINOPHILS 0 % (0-7); HEMOGLOBIN 12.2 g/dL (12-16); IMMATURE GRANULOCYTES 0.8 % (0-5); LYMPHOCYTES 8.6 % (15-50); MCH 35.1 pg (26.0-34.0); MCHC 33.9 g/dL (31.0-37.0); MCV 103.4 fL (80.0-100.0); NEUTROPHILS 78.6 % (40-80); PLATELET COUNT 432 10x3/uL (130-400); RBC 3.48 10x6/uL (4.00-5.40); RDW 12.5 % (11.5-14.5)
[2019-07-01 07:05] LABS: ALBUMIN 2.5 g/dL (3.4-5.0); ALKALINE PHOSPHATASE 94 U/L (46-116); ALT (SGPT) 84 U/L (10-68); BILIRUBIN - TOTAL 0.24 mg/dL (0.2-1.3); CALC OSMOLALITY 287 mosm/kg (275-300); CALCIUM 8.3 mg/dL (8.5-10.1); CARBON DIOXIDE 25.5 mmol/L (21.0-32.0); CHLORIDE - SERUM 109 mmol/L (98-107); CREATININE - SERUM 0.7 mg/dL (0.6-1.3); GLUCOSE 107 mg/dL (74-106); POTASSIUM - SERUM 3.9 mmol/L (3.5-5.1); PROTEIN - SERUM 5.8 g/dL (6.4-8.2); SODIUM 144 mmol/L (136-145); UREA NITROGEN 14 mg/dL (7-18); eGFR NON AFRICAN AMERICAN > 90 mL/min (90-120)
--- NOTE | 2019-07-01 07:43 | NUR ---
AWAKE AND ALERT. ORIENTED X3. NO C/O THIS AM. LUNGS HAVE WHEEZES ON THE LEFT AND CRACKLES ON THE RIGHT. NON PRODUCTIVE COUGH NOTED. SKIN IS INTACT WITHOUT REDNESS. IV TO RIGHT FOREARM IS PATENT WITHOUT REDNESS AT INSERTION SITE. DENIES NEEDS.
--- NOTE | 2019-07-01 09:30 | NUR ---
ATE ALL OF BREAKFAST. TOOK AM MEDS WITHOUT DIFFICULTY. DENIES NEEDS.
--- NOTE | 2019-07-01 09:44 | NUR ---
NUTRITION F/U PT TOLERATING REG DIET WITH 100% INTAKE RECENT MEALS. WILL CONTINUE TO HONOR FOOD PREFERENCES, MONITOR PO INTAKE. RD FOLLOWING
[2019-07-01 10:12] VITALS: BP 113/79
[2019-07-01 12:47] VITALS: BP 110/74
[2019-07-01 17:31] VITALS: BP 144/63
--- NOTE | 2019-07-01 18:35 | NUR ---
ATE ALL OF SUPPER. DENIES NEEDS. NO CHANGES NOTED.
[2019-07-01 20:10] VITALS: BP 126/77
[2019-07-02 04:00] VITALS: BP 118/78
[2019-07-02 04:45] LABS: BASOPHILS 0.1 % (0-2); EOSINOPHILS 0 % (0-7); HEMATOCRIT 37.4 % (36.0-48.0); HEMOGLOBIN 12.7 g/dL (12-16); IMMATURE GRANULOCYTES 1.2 % (0-5); LYMPHOCYTES 8.6 % (15-50); MCH 35.1 pg (26.0-34.0); MCV 103.3 fL (80.0-100.0); MEAN PLATELET VOLUME 9.8 fL (7.4-10.4); MONOCYTES 9.3 % (2-11); NEUTROPHILS 80.8 % (40-80); PLATELET COUNT 463 10x3/uL (130-400); RBC 3.62 10x6/uL (4.00-5.40); RDW 12.4 % (11.5-14.5); WBC 11.2 10x3/uL (4.8-10.8)
[2019-07-02 06:38] LABS: ALBUMIN 2.6 g/dL (3.4-5.0); ALKALINE PHOSPHATASE 96 U/L (46-116); ALT (SGPT) 83 U/L (10-68); BILIRUBIN - TOTAL 0.31 mg/dL (0.2-1.3); CALCIUM 8.1 mg/dL (8.5-10.1); CARBON DIOXIDE 25.2 mmol/L (21.0-32.0); CHLORIDE - SERUM 108 mmol/L (98-107); CREATININE - SERUM 0.8 mg/dL (0.6-1.3); GLUCOSE 150 mg/dL (74-106); POTASSIUM - SERUM 3.8 mmol/L (3.5-5.1); PROTEIN - SERUM 5.9 g/dL (6.4-8.2); SODIUM 143 mmol/L (136-145); eGFR NON AFRICAN AMERICAN 78 mL/min (90-120)
[2019-07-02 06:39] LABS: CALC OSMOLALITY 286 mosm/kg (275-300); UREA NITROGEN 10 mg/dL (7-18)
--- NOTE | 2019-07-02 08:41 | NUR ---
RESTING IN BED, NO DISTRESS NOTED, ALERT AND O, CONT TO MONITOR RESP STATUS
[2019-07-02 08:49] VITALS: BP 126/75
[2019-07-02 12:49] VITALS: BP 122/69
[2019-07-02 17:50] VITALS: BP 126/70
[2019-07-02 20:00] VITALS: BP 103/61
--- NOTE | 2019-07-03 03:08 | NUR ---
I have reviewed this patient and I concur with the Shift Assessment completed by the Licensed Practical Nurse today this shift.
[2019-07-03 05:07] LABS: BASOPHILS 0.1 % (0-2); EOSINOPHILS 0.2 % (0-7); HEMATOCRIT 39.6 % (36.0-48.0); HEMOGLOBIN 13.2 g/dL (12-16); IMMATURE GRANULOCYTES 1.3 % (0-5); LYMPHOCYTES 12.8 % (15-50); MCH 35.2 pg (26.0-34.0); MCHC 33.3 g/dL (31.0-37.0); MEAN PLATELET VOLUME 9.4 fL (7.4-10.4); MONOCYTES 9.9 % (2-11); NEUTROPHILS 75.7 % (40-80); PLATELET COUNT 469 10x3/uL (130-400); RBC 3.75 10x6/uL (4.00-5.40); RDW 12.6 % (11.5-14.5); WBC 12.5 10x3/uL (4.8-10.8)
[2019-07-03 05:08] LABS: MCV 105.6 fL (80.0-100.0)
[2019-07-03 05:28] LABS: ALBUMIN 2.6 g/dL (3.4-5.0); ANION GAP 12.4 mmol/L (8-16); BILIRUBIN - TOTAL 0.4 mg/dL (0.2-1.3); CALCIUM 8.4 mg/dL (8.5-10.1); CARBON DIOXIDE 27.6 mmol/L (21.0-32.0); CREATININE - SERUM 0.9 mg/dL (0.6-1.3)
[2019-07-03 10:12] VITALS: BP 103/61
--- NOTE | 2019-07-03 11:00 | NUR ---
UP IN ROOM, NO DISTRESS NOTED, IV INFUSING, HOPING TO GO HOME TODAY,
[2019-07-03] MEDS ORDERED: MUCINEX600 MG PO (11:11)
[2019-07-03] MEDS ORDERED: PREDNISONE10 MG PO (11:19)
[2019-07-03] MEDS ORDERED: LEVOFLOXACIN500 MG PO (11:20)
[2019-07-03] MEDS ORDERED: IPRAT-ALBUT 0.5-3 ML UPD (11:54)
[2019-07-03] MEDS ORDERED: ALBUTEROL SULF8.5 GM INH ×2 (11:54)
[2019-07-03 13:40] VITALS: BP 100/63
--- NOTE | 2019-07-03 14:30 | NUR ---
1300 IV REMOVED, TIP INTACT, PIPER WELL, RX ESCRIBED TO SANDY MENDIETA, PT TAKEN TO PRIVATE VEHICLE
--- NOTE | 2019-07-04 10:37 | MORECARE ---
CASE MANAGEMENT DISCHARGE SUMMARY PATIENT: NOHEMY MURPHY UNIT: [id number] ADM DATE: 06/24/19 AGE: 59 : 64 SEX: F ROOM/BED: D.2206 AUTHOR: PITA,DOC PHYSICIAN: REFERRING PHYSICIAN: SAUL GIBSON MD DATE OF SERVICE: 07/04/19 Discharge Plan Patient Name: NOHEMY MURPHY Facility: [facility]:[place] : 1960 Planned Disposition: Home Anticipated Discharge Date: 06/26/19 Discharge Date: 07/03/2019 Expected LOS: 2 Initial Reviewer: [email or web address] Initial Review Date: 06/24/2019 Generated: 07/04/19 11:37 am DCP- Discharge Planning Updated by [email or web address]: Leena Landers on 06/24/19 11:[address] DC PLAN: Return home independently. ANTICIPATED DC NEEDS: Denied known dc needs. CM met with patient to complete initial dc planning assessment. CM educated patient on the CM role and verbal consent given by patient to complete assessment. CM verified patient's address, phone number, and emergency contact phone numbers. Patient lives at home and her 14 year old grandson lives with her. At discharge patient plans to return home and feels this is a safe discharge. CM discussed availability of home health, rehab services, and medical equipment. Patient denied known discharge needs at this time. Transportation provider at discharge will be her sister. CM will continue to follow and will assist as needed with dc plans/needs. Leena Landers RN, [facility] DCPIA - Discharge Planning Initial Assessment Updated by [email or web address]: Leena Landers on 06/24/19 12:59 pm * Is the patient Alert and Oriented? Yes * How many steps to enter\exit or inside your home? None * PCP Dr. Chavez * Pharmacy [facility] * Preadmission Environment Home with Family * ADLs Independent * Equipment Nebulizer * List name and contact numbers for known caregivers / representatives who currently or will assist patient after discharge: Jolie key - [phone] * Verbal permission to speak to the caregivers and representatives has been obtained from the patient. Yes * Community resources currently utilized None * Additional services required to return to the preadmission environment? No * Can the patient safely return to the preadmission environment? Yes * Has this patient been hospitalized within the prior 30 days at any hospital? Yes Last DP export: 06/24/19 12:02 Patient Name: NOHEMY MURPHY Page [phone] at 1037 All edits/amendments must be made on the electronic document DICTATION DATE: 07/04/19 1037 MOBILE DEVICE DEVELOPER: TRISH 07/04/19 [facility] RPT#: [id number] DC DATE:07/03/19 STATUS: DIS IN [facility] [address] [place] [address] END OF REPORT
== END 2019-07-03 13:00 | disposition home or self-care (01) | DRG 177 ==
LOC: D.ER 08:05 → D.MS 11:56 → D.SDCHOLD 06-25 17:12 → D.MS 06-25 17:31
PROVIDERS: Emergency Medicine; Family Medicine; ADMIT Internal Medicine Nephrology; ATTEND Internal Medicine Nephrology
DX: J15.6 Pneumonia due to other Gram-negative bacteria (principal); J96.21 Acute and chronic respiratory failure with hypoxia; I26.93 Single subsegmental thrombotic pulmonary embolism without acute cor pulmonale; J44.1 Chronic obstructive pulmonary disease with (acute) exacerbation; J44.0 Chronic obstructive pulmonary disease with (acute) lower respiratory infection; J13 Pneumonia due to Streptococcus pneumoniae; J20.9 Acute bronchitis, unspecified; G47.00 Insomnia, unspecified; E87.6 Hypokalemia; D64.9 Anemia, unspecified